=== PATIENT | female | born 1975 | race Caucasian/White ===

== ENCOUNTER 2020-07-06 07:40 | Inpatient (IN) | payer SELFPAY ==
[~2020-07-06] VITALS: Ht 165.1 cm; Wt 64.5 kg
[2020-07-06] MEDS ORDERED: IV NORMAL SALINE 1000ML BAG 1,000 ML IV ONE (08:30)
[2020-07-06] MEDS ORDERED: ONDANSETRON PF 4 MG/2 ML VIAL. IVP ONE (08:30)
[2020-07-06] MEDS ORDERED: KETOROLAC 15 MG/ML VIAL. IVP ONE (08:30)
[2020-07-06] MEDS ORDERED: FAMOTIDINE 20 MG/2 ML VIAL IVP ONE (08:30)
[2020-07-06 08:41] LABS: BILIRUBIN,URINE NEGATIVE (NEG); CLARITY,URINE CLOUDY; COLOR,URINE YELLOW; NITRITE,URINE NEGATIVE (NEG); PH,URINE 8.5 (<5.0-8.0); PROTEIN,URINE NEGATIVE (NEG-TRACE); UROBILINOGEN,URINE 0.2 mg/dL (0.2 mg/dL)
[2020-07-06 08:45] LABS: BASO % 0 % (0-3); EOS # 0.1 x10^3/uL (0.0-0.7); EOS % 1 % (0-3); HEMATOCRIT 40.8 % (36.0-47.0); LYMPH # 1.7 x10^3/uL (1.0-4.8); LYMPH % 19 % (24-48); MEAN CORPUSCULAR HEMOGLOBIN 29 pg (25-35); MEAN CORPUSCULAR HGB CONC 34 g/dL (31-37); MEAN CORPUSCULAR VOLUME 84 fL (79-100); MONO # 0.6 x10^3/uL (0.0-1.1); MONO % 7 % (0-9); NEUT # 6.5 x10^3/uL (1.8-7.7); NEUT % 72 % (31-73); PLATELET COUNT 275 x10^3/uL (140-400); RED BLOOD COUNT 4.87 x10^6/uL (3.50-5.40); RED CELL DISTRIBUTION WIDTH 13.3 % (11.5-14.5)
[2020-07-06 08:47] LABS: BARBITURATES NEG (NEG); BENZODIAZEPINES NEG (NEG); CANNABINOIDS NEG (NEG); COCAINE NEG (NEG); METHADONE NEG (NEG); OPIATES NEG (NEG); PHENCYCLIDINE NEG (NEG)
[2020-07-06 08:48] LABS: BACTERIA,URINE FEW /HPF (0-FEW); RBC,URINE 0 /HPF (0-2); WBC,URINE OCC /HPF (0-4)
[2020-07-06 08:50] LABS: PROTHROMBIN TIME PATIENT 13.1 SEC (11.7-14.0)
[2020-07-06 08:51] LABS: AMPHETAMINE/METHAMPHETAMINE POS (NEG)
[2020-07-06 08:59] LABS: CALCIUM 9.3 mg/dL (8.5-10.1); CREATININE 0.9 mg/dL (0.6-1.0); GFR 68.3
[2020-07-06] MEDS ORDERED: IOHEXOL 300 MG/ML 100ML VIAL. IV ONE (09:00)
[2020-07-06 09:05] LABS: ALBUMIN 3.8 g/dL (3.4-5.0); ALBUMIN/GLOBULIN RATIO 1.1 (1.0-1.7); TOTAL PROTEIN 7.2 g/dL (6.4-8.2)
--- NOTE | 2020-07-06 09:10 | PHYS DOC ---
Past Medical History Past Medical History: Other Additional Past Medical Histor: BIPOLAR Past Surgical History: No Surgical History Smoking Status: Current Every Day Smoker Additional Information: VAPE Alcohol Use: Heavy Social History Narrative: "SHROOMS" "SPEED" General Adult EDM: Chief Complaint: ABDOMINAL PAIN HPI: HPI: Patient is a 45 year old female presents with several day history of epigastric abdominal pain with associated nausea and diarrhea. Patient reports last week she had had a fever and ended up staying home from work. Patient denies known exposure to COVID-19 however she does work at [employer] in the [employer]. Reports several employees have tested positive recently. Denies trauma. Denies . History of prior ETOH abuse and use of "speed" and mushrooms. Review of Systems: Review of Systems: Constitutional: Reports fever/chills and fatigue Eyes: Denies redness or eye pain HENT: Denies nasal congestion or sore throat Respiratory: Denies cough or shortness of breath Cardiovascular: Denies chest pain or palpitations GI: Reports abdominal pain, nausea, vomiting, and diarrhea : Denies dysuria or hematuria Musculoskeletal: Denies back pain or joint pain Integument: Denies rash or skin lesions Neurologic: Denies headache, focal weakness or sensory changes Complete systems were reviewed and found to be within normal limits, except as documented in this note. Heart Score: HEART Score for Chest Pain: HEART Score for Chest Pain Response (Comments) Value History Slighlty/Non-Suspicious 0 ECG Normal 0 Age < 45 0 Risk Factors 1 or 2 Risk Factors 1 Troponin < Normal Limit 0 Total 1 Risk Factors: Risk Factors: DM, Current or recent (<one month) smoker, HTN, HLP, family history of CAD, obesity. Risk Scores: Score 0 - 3: 2.5% MACE over next 6 weeks - Discharge Home Score 4 - 6: 20.3% MACE over next 6 weeks - Admit for Clinical Observation Score 7 - 10: 72.7% MACE over next 6 weeks - Early Invasive Strategies Current Medications: Current Medications Medications (Trade) Dose Ordered Sig/Kevin Start Time Stop Time Status Last Admin Dose Admin Famotidine (Pepcid Vial) 20 mg 1X ONCE 07/06/20 08:30 07/06/20 08:37 DC 07/06/20 08:38 20 MG Ketorolac Tromethamine (Toradol 15mg Vial) 15 mg 1X ONCE 07/06/20 08:30 07/06/20 08:37 DC 07/06/20 08:38 15 MG Ondansetron HCl (Zofran) 4 mg 1X ONCE 07/06/20 08:30 07/06/20 08:37 DC 07/06/20 08:38 4 MG Sodium Chloride 1,000 ml @ 1,000 mls/hr 1X ONCE 07/06/20 08:30 07/06/20 09:29 07/06/20 08:38 1,000 MLS/HR Allergies: Allergies: Allergies Coded Allergies Type Severity Reaction Last Updated Verified No Known Drug Allergies 07/06/20 No Physical Exam: PE: Constitutional: Well developed, well nourished, no acute distress, non-toxic appearance HENT: Normocephalic, atraumatic Eyes: Conjunctiva normal, no discharge Neck: Normal range of motion, no tenderness, supple Lungs & Thorax: No respiratory distress, equal chest rise and fall Abdomen: Soft, epigastric tenderness, mild guarding and distention noted, no re bound tenderness Skin: Warm, dry, no erythema, no rash Back: No tenderness, no CVA tenderness Extremities: No tenderness, ROM intact, no edema Neurologic: Alert and oriented X 3, no focal deficits noted Psychologic: Affect normal, judgment normal Current Patient Data: Labs: Laboratory Tests Test 07/06/20 07:57 07/06/20 08:25 POC Urine HCG, Qualitative Hcg negative (Negative) White Blood Count 9.0 x10^3/uL (4.0-11.0) Red Blood Count 4.87 x10^6/uL (3.50-5.40) Hemoglobin 14.0 g/dL (12.0-15.5) Hematocrit 40.8 % (36.0-47.0) Mean Corpuscular Volume 84 fL (79-100) Mean Corpuscular Hemoglobin 29 pg (25-35) Mean Corpuscular Hemoglobin Concent 34 g/dL (31-37) Red Cell Distribution Width 13.3 % (11.5-14.5) Platelet Count 275 x10^3/uL (140-400) Neutrophils (%) (Auto) 72 % (31-73) Lymphocytes (%) (Auto) 19 % (24-48) L Monocytes (%) (Auto) 7 % (0-9) Eosinophils (%) (Auto) 1 % (0-3) Basophils (%) (Auto) 0 % (0-3) Neutrophils # (Auto) 6.5 x10^3/uL (1.8-7.7) Lymphocytes # (Auto) 1.7 x10^3/uL (1.0-4.8) Monocytes # (Auto) 0.6 x10^3/uL (0.0-1.1) Eosinophils # (Auto) 0.1 x10^3/uL (0.0-0.7) Basophils # (Auto) 0.0 x10^3/uL (0.0-0.2) Prothrombin Time 13.1 SEC (11.7-14.0) Prothrombin Time INR 1.0 (0.8-1.1) Activated Partial Thromboplast Time 32 SEC (24-38) Urine Collection Type Void Urine Color Yellow Urine Clarity Cloudy Urine pH 8.5 (<5.0-8.0) Urine Specific [place] 1.025 (1.000-1.030) Urine Protein Negative mg/dL (NEG-TRACE) Urine Glucose (UA) Negative mg/dL (NEG) Urine Ketones (Stick) Negative mg/dL (NEG) Urine Blood Negative (NEG) Urine Nitrite Negative (NEG) Urine Bilirubin Negative (NEG) Urine Urobilinogen Dipstick 0.2 mg/dL (0.2 mg/dL) Urine Leukocyte Esterase Negative (NEG) Urine RBC 0 /HPF (0-2) Urine WBC Occ /HPF (0-4) Urine Squamous Epithelial Cells Many /LPF Urine Bacteria Few /HPF (0-FEW) Urine Opiates Screen Neg (NEG) Urine Methadone Screen Neg (NEG) Urine Barbiturates Neg (NEG) Urine Phencyclidine Screen Neg (NEG) Urine Amphetamine/Methamphetamine Pos (NEG) Urine Benzodiazepines Screen Neg (NEG) Urine Cocaine Screen Neg (NEG) Urine Cannabinoids Screen Neg (NEG) Urine Ethyl Alcohol Neg (NEG) Laboratory Tests 07/06/20 08:25 Vital Signs: Vital Signs Date Time Temp Pulse Resp B/P (MAP) Pulse Ox O2 Delivery O2 Flow Rate FiO2 07/06/20 08:09 97.7 85 150/80 (103) 100 Room Air 97.7 EKG: EKG: @0846 NSR at 66bpm, NO ST elevation, artifactual negative deflection noted in II-III, QRS 96ms, QT/QTc 414/436ms Radiology/Procedures: Radiology/Procedures: PROCEDURE: CT ABD PELV W/ IV CONTRST ONLY Examination: CT of the abdomen pelvis with IV contrast History: abdominal pain, nausea, diarrhea COMPARISON: None available Technique: Axial CT images of the abdomen pelvis were performed with IV contrast. Coronal and sagittal reformats are performed. Exposure: One or more of the following individualized dose reduction techniques were utilized for this examination: 1. Automated exposure control 2. Adjustment of the mA and/or kV according to patient size 3. Use of iterative reconstruction technique FINDINGS: The bibasilar lungs are clear. No evidence of free air identified in the abdomen. The liver, spleen grossly appears unremarkable. The gallbladder is mildly distended. The stomach is mildly distended with fluid. There are multiple dilated and fluid distended small bowel loops identified in the upper and mid abdomen. Multiple nondistended bowel loops in the lower abdomen likely small bowel obstruction. The transition point is difficult to visualize but could be in the right lower quadrant. Feces and gas noted in the colon. Urinary bladder is mildly distended. Small amount of free fluid identified in the pelvis. There is peripherally enhancing cystic structure identified in the right ovary measuring 1.4 cm likely a follicle The bilateral kidneys enhance symmetrically. Moderate degenerative changes thoracolumbar spine most at L4-L5 vertebral level. IMPRESSION: 1. Dilated small bowel loops with findings consistent with small bowel obstruction with possible transition point in the right lower quadrant. Electronically signed by: Jayesh Romero MD (07/06/2020 9:43 AM) [id number] Course & Med Decision Making: Course & Med Decision Making Pertinent Labs and Imaging studies reviewed. (See chart for details) Patient presents with report of epigastric abdominal pain with associated nausea and diarrhea x1 day. History of prior episode last week. Patient reports possible exposure to COVID-19. Covid [address] Covid testing pending. EKG stable. Labs obtained and posted to chart. Hypokalemia noted. Replacement ordered. CT abdomen/pelvis with findings of acute small bowel obstruction. Patient requiring admission for further evaluation and treatment. Discussed with Dr. Fowler (hospitalist) who is in agreement with admission. Consult placed to Dr. Hooks (general surgery) Discussed findings and plan with patient, who acknowledges understanding and agreement. COVID-19 CRITERIA: The patient was evaluated during the global COVID-19 [facility], and that diagnosis was suspected/considered upon their initial presentation. Their evaluation, treatment and testing was consistent with current guidelines for patients who present with complaints or symptoms that may be related to COVID-19. Dragon Disclaimer: Dragon Disclaimer: This electronic medical record was generated, in whole or in part, using a voice recognition dictation system. Departure Departure Impression: Primary Impression: Small bowel obstruction Additional Impressions: Suspected 2019 novel coronavirus infection Hypokalemia Disposition: ADMITTED INPT THIS HOSP Admitting Physician: BIBIANA Leahy) Condition: STABLE Referrals: NO PCP (PCP) COVID-19 Assessment: COVID-19 Patient Risks: Age 65 or older: No Sign of co-morbidity: No Exp to person + for COVID: Yes Exp to PUI: No Travel from affected area: No Lower respiratory symptoms: No Fever: Yes Other: Yes PPE Use: Full PPE with N95 mask or PAPR: Yes PARKER JETER DO Jul 06, 2020 09:10
--- NOTE | 2020-07-06 09:46 | RAD ---
Examination: CT of the abdomen pelvis with IV contrast History: abdominal pain, nausea, diarrhea COMPARISON: None available Technique: Axial CT images of the abdomen pelvis were performed with IV contrast. Coronal and sagittal reformats are performed. Exposure: One or more of the following individualized dose reduction techniques were utilized for this examination: 1. Automated exposure control 2. Adjustment of the mA and/or kV according to patient size 3. Use of iterative reconstruction technique FINDINGS: The bibasilar lungs are clear. No evidence of free air identified in the abdomen. The liver, spleen grossly appears unremarkable. The gallbladder is mildly distended. The stomach is mildly distended with fluid. There are multiple dilated and fluid distended small bowel loops identified in the upper and mid abdomen. Multiple nondistended bowel loops in the lower abdomen likely small bowel obstruction. The transition point is difficult to visualize but could be in the right lower quadrant. Feces and gas noted in the colon. Urinary bladder is mildly distended. Small amount of free fluid identified in the pelvis. There is peripherally enhancing cystic structure identified in the right ovary measuring 1.4 cm likely a follicle The bilateral kidneys enhance symmetrically. Moderate degenerative changes thoracolumbar spine most at L4-L5 vertebral level. IMPRESSION: 1. Dilated small bowel loops with findings consistent with small bowel obstruction with possible transition point in the right lower quadrant. Electronically signed by: Jayesh Romero MD (07/06/2020 9:43 AM) [id number]
[2020-07-06] MEDS ORDERED: ONDANSETRON PF 4 MG/2 ML VIAL. IV PRN ×2 (10:45→16:00)
[2020-07-06] MEDS ORDERED: CONTRAST GIVEN. MC PRN (10:45)
--- NOTE | 2020-07-06 10:53 | PDOC1 ---
History and Physical Date of Admission Date of Admission DATE: 07/06/20 TIME: 10:52 Identification/Chief Complaint Chief Complaint SEEN IN ER WITH sbo 45 year old female presents with several day history of epigastric abdominal pain with associated nausea and diarrhea. Patient reports last week she had had a fever Patient denies known exposure to COVID-19 however she does work at [employer] in the [employer]. Reports several employees have tested positive recently. Denies trauma. Denies . History of prior ETOH abuse and use of "speed" and mushrooms. Past Medical History Past Medical History Past Medical History Past Medical History Past Medical History: Other Additional Past Medical Histor: BIPOLAR Past Surgical History: No Surgical History Smoking Status: Current Every Day Smoker Additional Information: VAPE Alcohol Use: Heavy Social History Narrative: "SHROOMS" "SPEED" fhx copd Pulmonary: No pertinent hx Family History Family History: Hypertension Social History Smoke: <1 pack per day ALCOHOL: occassional Drugs: Other (mushrooms) Current Problem List Problem List Problems Medical Problems: (1) Epigastric abdominal pain Status: Acute (2) Hypokalemia Status: Acute (3) Small bowel obstruction Status: Acute (4) Suspected 2019 novel coronavirus infection Status: Acute Current Medications Current Medications Current Medications Ondansetron HCl (Zofran) 4 mg 1X ONCE IVP Last administered on 07/06/20at 08:38; Start 07/06/20 at 08:30; Stop 07/06/20 at 08:37; Status DC Famotidine (Pepcid Vial) 20 mg 1X ONCE IVP Last administered on 07/06/20at 08:38; Start 07/06/20 at 08:30; Stop 07/06/20 at 08:37; Status DC Ketorolac Tromethamine (Toradol 15mg Vial) 15 mg 1X ONCE IVP Last administered on 07/06/20at 08:38; Start 07/06/20 at 08:30; Stop 07/06/20 at 08:37; Status DC Sodium Chloride 1,000 ml @ 1,000 mls/hr 1X ONCE IV Last administered on 07/06/20at 08:38; Start 07/06/20 at 08:30; Stop 07/06/20 at 09:29; Status DC Iohexol (Omnipaque 300 Mg/ml) 75 ml 1X ONCE IV Last administered on 07/06/20at 09:08; Start 07/06/20 at 09:00; Stop 07/06/20 at 09:02; Status DC Ondansetron HCl (Zofran) 4 mg PRN Q8HRS PRN IV NAUSEA/VOMITING; Start 07/06/20 at 10:45; Stop 07/07/20 at 10:44 Sodium Chloride 1,000 ml @ 100 mls/hr Q10H IV ; Start 07/06/20 at 10:34; Stop 07/07/20 at 10:33 Info (CONTRAST GIVEN -- Rx MONITORING) 1 each PRN DAILY PRN MC SEE COMMENTS; Start 07/06/20 at 10:45; Stop 07/08/20 at 10:44 Potassium Chloride/Water 100 ml @ 100 mls/hr Q1H IV ; Start 07/06/20 at 11:00; Stop 07/06/20 at 14:59 Allergies Allergies: Coded Allergies: No Known Drug Allergies (Unverified , 07/06/20) ROS Review of System Constitutional: Reports fever/chills and fatigue Eyes: Denies redness or eye pain HENT: Denies nasal congestion or sore throat Respiratory: Denies cough or shortness of breath Cardiovascular: Denies chest pain or palpitations GI: Reports abdominal pain, nausea, vomiting, and diarrhea : Denies dysuria or hematuria Musculoskeletal: Denies back pain or joint pain Integument: Denies rash or skin lesions Neurologic: Denies headache, focal weakness or sensory changes Complete systems were reviewed and found to be within normal limits, except as documented in this note. 14 pt ros otherwise neg General: YES: Fatigue Eyes: No Blurry vision, No Decreased vision, No Double vision, No Dry eyes, No Excessive tearing, No Eye Pain, No Itchy Eyes, No Loss of vision, No Photophobia, No Scotomata, No Uses contacts, No Uses glasses, No Other ALLERGY AND IMMUNOLOGY: No: Hives, Insect Bite Sensitivity, Itchy/Watery Eyes, Nasal Congestion, Post Nasal Drip, Seasonal Allergies, Other Hematological and Lymphatic: No: Bleeding Problems, Blood Clots, Blood Tra nsfusions, Brusing, Night Sweats, Pallor, Swollen Lymph Nodes, Other Respiratory: No: Cough, Hemoptysis, Orthopnea, Pleuritic Pain, Shortness of breath, SOB with excertion, Sputum Changes, Stridor, Tachypnea, Wheezing, Other Gastrointestinal: Yes Nausea, Yes Abdominal Pain Genitourinary: No Dysuria, No Frequency, No Incontinence, No Hematuria, No Retention, No Discharge, No Urgency, No Pain, No Flank Pain, No Other, No , No , No , No , No , No , No Neurological: No Behavorial Changes, No Bowel/Bladder ControlChng, No Confusi on, No Dizziness, No Gait Disturbance, No Headaches, No Impaired Coord/balance, No Memory Loss, No Numbness/Tingling, No Seizures, No Speech Problems, No Tremors, No Visual Changes, No Weakness, No Other Physical Exam Physical Exam Constitutional: Well developed, well nourished, no acute distress, non-toxic appearance HENT: Normocephalic, atraumatic Eyes: Conjunctiva normal, no discharge Neck: Normal range of motion, no tenderness, supple Lungs & Thorax: No respiratory distress, equal chest rise and fall Abdomen: Soft, epigastric tenderness, mild guarding and distention noted, no rebound tenderness Skin: Warm, dry, no erythema, no rash Back: No tenderness, no CVA tenderness Extremities: No tenderness, ROM intact, no edema Neurologic: Alert and oriented X 3, no focal deficits noted Psychologic: Affect normal, judgment normal General: Alert, Oriented X3, Cooperative, No acute distress HEENT: EOMI, Mucous membr. moist/pink Lungs: Normal air movement Breasts: Not examined Abdomen: Soft, No hepatosplenomegaly Rectal Exam: not examined Extremities: No cyanosis Neuro: Normal speech, Cranial nerves 3-12 NL Psych/Mental Status: Mental status NL, Mood NL Vitals Vitals Vital Signs Date Time Temp Pulse Resp B/P (MAP) Pulse Ox O2 Delivery O2 Flow Rate FiO2 07/06/20 08:09 97.7 85 150/80 (103) 100 Room Air 97.7 Labs Labs Laboratory Tests Test 07/06/20 07:57 07/06/20 08:25 Bedside Urine HCG, Qualitative Hcg negative (Negative) White Blood Count 9.0 x10^3/uL (4.0-11.0) Red Blood Count 4.87 x10^6/uL (3.50-5.40) Hemoglobin 14.0 g/dL (12.0-15.5) Hematocrit 40.8 % (36.0-47.0) Mean Corpuscular Volume 84 fL (79-100) Mean Corpuscular Hemoglobin 29 pg (25-35) Mean Corpuscular Hemoglobin Concent 34 g/dL (31-37) Red Cell Distribution Width 13.3 % (11.5-14.5) Platelet Count 275 x10^3/uL (140-400) Neutrophils (%) (Auto) 72 % (31-73) Lymphocytes (%) (Auto) 19 % (24-48) Monocytes (%) (Auto) 7 % (0-9) Eosinophils (%) (Auto) 1 % (0-3) Basophils (%) (Auto) 0 % (0-3) Neutrophils # (Auto) 6.5 x10^3/uL (1.8-7.7) Lymphocytes # (Auto) 1.7 x10^3/uL (1.0-4.8) Monocytes # (Auto) 0.6 x10^3/uL (0.0-1.1) Eosinophils # (Auto) 0.1 x10^3/uL (0.0-0.7) Basophils # (Auto) 0.0 x10^3/uL (0.0-0.2) Prothrombin Time 13.1 SEC (11.7-14.0) Prothromb Time International Ratio 1.0 (0.8-1.1) Activated Partial Thromboplast Time 32 SEC (24-38) Urine Collection Type Void Urine Color Yellow Urine Clarity Cloudy Urine pH 8.5 (<5.0-8.0) Urine Specific [place] 1.025 (1.000-1.030) Urine Protein Negative mg/dL (NEG-TRACE) Urine Glucose (UA) Negative mg/dL (NEG) Urine Ketones (Stick) Negative mg/dL (NEG) Urine Blood Negative (NEG) Urine Nitrite Negative (NEG) Urine Bilirubin Negative (NEG) Urine Urobilinogen Dipstick 0.2 mg/dL (0.2 mg/dL) Urine Leukocyte Esterase Negative (NEG) Urine RBC 0 /HPF (0-2) Urine WBC Occ /HPF (0-4) Urine Squamous Epithelial Cells Many /LPF Urine Bacteria Few /HPF (0-FEW) Sodium Level 141 mmol/L (136-145) Potassium Level 3.0 mmol/L (3.5-5.1) Chloride Level 104 mmol/L (98-107) Carbon Dioxide Level 23 mmol/L (21-32) Anion Gap 14 (6-14) Blood Urea Nitrogen 15 mg/dL (7-20) Creatinine 0.9 mg/dL (0.6-1.0) Estimated GFR (Cockcroft-Gault) 68.3 BUN/Creatinine Ratio 17 (6-20) Glucose Level 100 mg/dL (70-99) Calcium Level 9.3 mg/dL (8.5-10.1) Magnesium Level 2.1 mg/dL (1.8-2.4) Total Bilirubin 1.0 mg/dL (0.2-1.0) Aspartate Amino Transf (AST/SGOT) 18 U/L (15-37) Alanine Aminotransferase (ALT/SGPT) 14 U/L (14-59) Alkaline Phosphatase 68 U/L (46-116) Creatine Kinase 109 U/L (26-192) Creatine Kinase MB (Mass) 2.3 ng/mL (0.0-3.6) Creatine Kinase MB Relative Index 2.1 % (0-4) Troponin I Quantitative < 0.017 ng/mL (0.000-0.055) Total Protein 7.2 g/dL (6.4-8.2) Albumin 3.8 g/dL (3.4-5.0) Albumin/Globulin Ratio 1.1 (1.0-1.7) Lipase 402 U/L (73-393) Urine Opiates Screen Neg (NEG) Urine Methadone Screen Neg (NEG) Urine Barbiturates Neg (NEG) Urine Phencyclidine Screen Neg (NEG) Urine Amphetamine/Methamphetamine Pos (NEG) Urine Benzodiazepines Screen Neg (NEG) Urine Cocaine Screen Neg (NEG) Urine Cannabinoids Screen Neg (NEG) Ethyl Alcohol Level < 10 mg/dL (0-10) Urine Ethyl Alcohol Neg (NEG) Laboratory Tests Test 07/06/20 07:57 07/06/20 08:25 Bedside Urine HCG, Qualitative Hcg negative (Negative) White Blood Count 9.0 x10^3/uL (4.0-11.0) Red Blood Count 4.87 x10^6/uL (3.50-5.40) Hemoglobin 14.0 g/dL (12.0-15.5) Hematocrit 40.8 % (36.0-47.0) Mean Corpuscular Volume 84 fL (79-100) Mean Corpuscular Hemoglobin 29 pg (25-35) Mean Corpuscular Hemoglobin Concent 34 g/dL (31-37) Red Cell Distribution Width 13.3 % (11.5-14.5) Platelet Count 275 x10^3/uL (140-400) Neutrophils (%) (Auto) 72 % (31-73) Lymphocytes (%) (Auto) 19 % (24-48) Monocytes (%) (Auto) 7 % (0-9) Eosinophils (%) (Auto) 1 % (0-3) Basophils (%) (Auto) 0 % (0-3) Neutrophils # (Auto) 6.5 x10^3/uL (1.8-7.7) Lymphocytes # (Auto) 1.7 x10^3/uL (1.0-4.8) Monocytes # (Auto) 0.6 x10^3/uL (0.0-1.1) Eosinophils # (Auto) 0.1 x10^3/uL (0.0-0.7) Basophils # (Auto) 0.0 x10^3/uL (0.0-0.2) Prothrombin Time 13.1 SEC (11.7-14.0) Prothromb Time International Ratio 1.0 (0.8-1.1) Activated Partial Thromboplast Time 32 SEC (24-38) Urine Collection Type Void Urine Color Yellow Urine Clarity Cloudy Urine pH 8.5 (<5.0-8.0) Urine Specific [place] 1.025 (1.000-1.030) Urine Protein Negative mg/dL (NEG-TRACE) Urine Glucose (UA) Negative mg/dL (NEG) Urine Ketones (Stick) Negative mg/dL (NEG) Urine Blood Negative (NEG) Urine Nitrite Negative (NEG) Urine Bilirubin Negative (NEG) Urine Urobilinogen Dipstick 0.2 mg/dL (0.2 mg/dL) Urine Leukocyte Esterase Negative (NEG) Urine RBC 0 /HPF (0-2) Urine WBC Occ /HPF (0-4) Urine Squamous Epithelial Cells Many /LPF Urine Bacteria Few /HPF (0-FEW) Sodium Level 141 mmol/L (136-145) Potassium Level 3.0 mmol/L (3.5-5.1) Chloride Level 104 mmol/L (98-107) Carbon Dioxide Level 23 mmol/L (21-32) Anion Gap 14 (6-14) Blood Urea Nitrogen 15 mg/dL (7-20) Creatinine 0.9 mg/dL (0.6-1.0) Estimated GFR (Cockcroft-Gault) 68.3 BUN/Creatinine Ratio 17 (6-20) Glucose Level 100 mg/dL (70-99) Calcium Level 9.3 mg/dL (8.5-10.1) Magnesium Level 2.1 mg/dL (1.8-2.4) Total Bilirubin 1.0 mg/dL (0.2-1.0) Aspartate Amino Transf (AST/SGOT) 18 U/L (15-37) Alanine Aminotransferase (ALT/SGPT) 14 U/L (14-59) Alkaline Phosphatase 68 U/L (46-116) Creatine Kinase 109 U/L (26-192) Creatine Kinase MB (Mass) 2.3 ng/mL (0.0-3.6) Creatine Kinase MB Relative Index 2.1 % (0-4) Troponin I Quantitative < 0.017 ng/mL (0.000-0.055) Total Protein 7.2 g/dL (6.4-8.2) Albumin 3.8 g/dL (3.4-5.0) Albumin/Globulin Ratio 1.1 (1.0-1.7) Lipase 402 U/L (73-393) Urine Opiates Screen Neg (NEG) Urine Methadone Screen Neg (NEG) Urine Barbiturates Neg (NEG) Urine Phencyclidine Screen Neg (NEG) Urine Amphetamine/Methamphetamine Pos (NEG) Urine Benzodiazepines Screen Neg (NEG) Urine Cocaine Screen Neg (NEG) Urine Cannabinoids Screen Neg (NEG) Ethyl Alcohol Level < 10 mg/dL (0-10) Urine Ethyl Alcohol Neg (NEG) Images Images PATIENT: NITO HINES ACCOUNT: [id number] : 1975 LOCATION: ER AGE: 45 SEX: F EXAM STATUS: REG ER ORD. PHYSICIAN: PARKER JETER DO REASON: upper abdominal pain, nausea, diarrhea PROCEDURE: CT ABD PELV W/ IV CONTRST ONLY Examination: CT of the abdomen pelvis with IV contrast History: abdominal pain, nausea, diarrhea COMPARISON: None available Technique: Axial CT images of the abdomen pelvis were performed with IV contrast. Coronal and sagittal reformats are performed. Exposure: One or more of the following individualized dose reduction techniques were utilized for this examination: 1. Automated exposure control 2. Adjustment of the mA and/or kV according to patient size 3. Use of iterative reconstruction technique FINDINGS: The bibasilar lungs are clear. No evidence of free air identified in the abdomen. The liver, spleen grossly appears unremarkable. The gallbladder is mildly distended. The stomach is mildly distended with fluid. There are multiple dilated and fluid distended small bowel loops identified in the upper and mid abdomen. Multiple nondistended bowel loops in the lower abdomen likely small bowel obstruction. The transition point is difficult to visualize but could be in the right lower quadrant. Feces and gas noted in the colon. Urinary bladder is mildly distended. Small amount of free fluid identified in the pelvis. There is peripherally enhancing cystic structure identified in the right ovary measuring 1.4 cm likely a follicle The bilateral kidneys enhance symmetrically. Moderate degenerative changes thoracolumbar spine most at L4-L5 vertebral level. IMPRESSION: 1. Dilated small bowel loops with findings consistent with small bowel obstruction with possible transition point in the right lower quadrant. Electronically signed by: Jayesh Romero MD (07/06/2020 9:43 AM) [id number] DICTATED and SIGNED BY: JAYESH ROMERO MD DATE: 07/06/20 0943 VTE Prophylaxis Ordered VTE Prophylaxis Devices: Yes VTE Pharmacological Prophylaxi: Yes Assessment/Plan Assessment/Plan IMPRESSION: 1. Dilated small bowel loops //consistent with small bowel obstruction with possible transition point in the right lower quadrant. 2. hx substance abuse, METH 3. fever 4. Suspected 2019 novel coronavirus infection 5. Hypokalemia ADMITTED replace k iv gen surgery consult NPO DVT PROPHYLAXIS IV K AM LABS D/W ER DR Justifications for Admission Other Justification JEAN LOPEZ MD Jul 06, 2020 10:53
[2020-07-06 12:35] VITALS: BP 97/61
[2020-07-06] MEDS: IV NORMAL SALINE 1000ML BAG 1,000 ML IV SCH ×2 (13:03→20:34)
[2020-07-06] MEDS: POTASSIUM CHLORIDE 10MEQ 100 ML IV SCH ×7 (13:03→21:48)
--- NOTE | 2020-07-06 13:51 | RAD ---
KUB INDICATION: Reason: NG tube verification 664 / Spl. Instructions: / History: . COMPARISON: None. TECHNIQUE: Supine view of the abdomen was obtained. FINDINGS: Enteric tube with tip overlying the stomach. Distended loop of small bowel in the midabdomen. Large colonic stool burden. No free air on this limited supine image. Limited view of the lower chest demonstrates no acute abnormality. No acute osseous abnormality. IMPRESSION: Enteric tube tip overlying the body of the stomach. Electronically signed by: Ganesh Herrera MD (07/06/2020 1:48 PM) [id number]
--- NOTE | 2020-07-06 14:46 | EKG ---
[facility] [address] [place] [address] Test Date: 2020-07-06 Test Time: 08:46:40 Pat Name: NITO HINES Department: Room: Gender: F Information Support Project Manager: : 1975 Requested By: PARKER JETER Order Number: [id number] Reading MD: Measurements Intervals [place] Rate: 66 P: 0 [place]: 106 QRS: 55 QRSD: 96 T: 31 QT: 414 QTc: 436 Interpretive Statements SINUS RHYTHM NORMAL ECG RI6.01 No previous ECG available for comparison
[2020-07-06] MEDS ORDERED: IV NORMAL SALINE 1000ML BAG 1,000 ML IV SCH (15:56)
[2020-07-06] MEDS ORDERED: DOCUSATE SODIUM 100 MG CAPSULE. PO PRN (16:00)
[2020-07-06] MEDS ORDERED: cloNIDine HCL 0.1 MG TABLET PO PRN (16:00)
[2020-07-06] MEDS ORDERED: ACETAMINOPHEN 650 MG SUPP.RECT. PR PRN (16:00)
[2020-07-06] MEDS ORDERED: 0.9 % SODIUM CHLORIDE 10 ML DISP.SYRIN. IV PRN (16:00)
[2020-07-06] MEDS ORDERED: ALBUTEROL SULFATE 2.5 MG/3 ML NEBU. NEB PRN (16:00)
[2020-07-06] MEDS ORDERED: LORazepam 0.5 MG TABLET PO PRN (16:00)
[2020-07-06] MEDS ORDERED: guaiFENesin ORAL 200 MG/10 ML LIQUID. PO PRN (16:00)
[2020-07-06] MEDS ORDERED: MULTIVIT INFUSN,ADULT 4,VIT K 10 ML, THIAMINE INJ 100 MG, FOLIC ACID INJ 1 MG in IV NOR... IV ONE (16:00)
[2020-07-06] MEDS ORDERED: MAG HYDROX/ALUMINUM HYD/SIMETH 30 ML ORAL.SUSP PO PRN (16:00)
[2020-07-06] MEDS ORDERED: ACETAMINOPHEN 325 MG TABLET. PO PRN (16:00)
[2020-07-06] MEDS: ENOXAPARIN 40 MG/0.4 ML SYRINGE. SQ SCH (17:52)
--- NOTE | 2020-07-06 19:11 | PDOC2 ---
CONSULT Date of Consult Date of Consult DATE: 07/06/20 TIME: 18:48 Reason for Consult Reason for Consult: SBO Referring Physician Referring Physician: Dr. Fowler Identification/Chief Complaint Chief Complaint abd pain Source Source: Chart review, Patient History of Present Illness Reason for Visit: 45 yo F with N/V abd pain and diarrhea for a few weeks. Symptoms worsened prompting admission. Pt seen in her room and appears fatigued. Past Medical History Pulmonary: No pertinent hx Past Surgical History Past Surgical History: No pertinent history Family History Family History: Hypertension Social History <1 pack per day ALCOHOL: occassional Drugs: Other (mushrooms) Current Problem List Problem List Problems Medical Problems: (1) Epigastric abdominal pain Status: Acute (2) Hypokalemia Status: Acute (3) Small bowel obstruction Status: Acute (4) Suspected 2019 novel coronavirus infection Status: Acute Current Medications Current Medications Current Medications Ondansetron HCl (Zofran) 4 mg 1X ONCE IVP Last administered on 07/06/20at 08:38; Start 07/06/20 at 08:30; Stop 07/06/20 at 08:37; Status DC Famotidine (Pepcid Vial) 20 mg 1X ONCE IVP Last administered on 07/06/20at 08:38; Start 07/06/20 at 08:30; Stop 07/06/20 at 08:37; Status DC Ketorolac Tromethamine (Toradol 15mg Vial) 15 mg 1X ONCE IVP Last administered on 07/06/20at 08:38; Start 07/06/20 at 08:30; Stop 07/06/20 at 08:37; Status DC Sodium Chloride 1,000 ml @ 1,000 mls/hr 1X ONCE IV Last administered on 07/06/20at 08:38; Start 07/06/20 at 08:30; Stop 07/06/20 at 09:29; Status DC Iohexol (Omnipaque 300 Mg/ml) 75 ml 1X ONCE IV Last administered on 07/06/20at 09:08; Start 07/06/20 at 09:00; Stop 07/06/20 at 09:02; Status DC Ondansetron HCl (Zofran) 4 mg PRN Q8HRS PRN IV NAUSEA/VOMITING; Start 07/06/20 at 10:45; Stop 07/06/20 at 16:57; Status DC Sodium Chloride 1,000 ml @ 100 mls/hr Q10H IV Last administered on 07/06/20at 13:03; Start 07/06/20 at 10:34; Stop 07/07/20 at 10:33 Info (CONTRAST GIVEN -- Rx MONITORING) 1 each PRN DAILY PRN MC SEE COMMENTS; Start 07/06/20 at 10:45; Stop 07/08/20 at 10:44 Potassium Chloride/Water 100 ml @ 100 mls/hr Q1H IV Last administered on 07/06/20at 17:58; Start 07/06/20 at 11:00; Stop 07/06/20 at 14:59; Status DC Potassium Chloride/Water 100 ml @ 100 mls/hr Q1H IV ; Start 07/06/20 at 17:00; Stop 07/06/20 at 20:59 Sodium Chloride (Normal Saline Flush) 3 ml QSHIFT PRN IV AFTER MEDS AND BLOOD DRAWS; Start 07/06/20 at 16:00 Sodium Chloride 1,000 ml @ 100 mls/hr Q10H IV ; Start 07/06/20 at 15:56 Multivitamins 10 ml/Thiamine HCl 100 mg/Folic Acid 1 mg/Sodium Chloride 1,011.2 ml @ 125 mls/ hr 1X ONCE IV ; Start 07/06/20 at 16:00; Stop 07/07/20 at 00:05 Ondansetron HCl (Zofran) 4 mg PRN Q4HRS PRN IV NAUSEA/VOMITING; Start 07/06/20 at 16:00 Acetaminophen (Tylenol) 650 mg PRN Q4HRS PRN PO TEMP OVER 100.4F OR MILD PAIN; Start 07/06/20 at 16:00 Acetaminophen (Tylenol Supp) 650 mg PRN Q4HRS PRN ME TEMP OVER 100.4F OR MILD PAIN; Start 07/06/20 at 16:00 Al Hydroxide/Mg Hydroxide (Mylanta Plus Xs) 30 ml PRN DAILY PRN PO HEARTBURN / GAS; Start 07/06/20 at 16:00 Clonidine HCl (Catapres) 0.1 mg PRN Q6HRS PRN PO SBP>160 OR DBP>90; Start 07/06/20 at 16:00 Docusate Sodium (Colace) 100 mg PRN BID PRN PO HARD STOOLS; Start 07/06/20 at 16:00 Albuterol Sulfate (Ventolin Neb Soln) 2.5 mg PRN Q4HRS PRN NEB SHORTNESS OF BREATH; Start 07/06/20 at 16:00 Guaifenesin (Robitussin) 200 mg PRN Q4HRS PRN PO COUGH; Start 07/06/20 at 16:00 Lorazepam (Ativan) 0.5 mg PRN Q4HRS PRN PO ANXIETY / AGITATION; Start 07/06/20 at 16:00 Enoxaparin Sodium (Lovenox 40mg Syringe) 40 mg Q24H SQ Last administered on 07/06/20at 17:52; Start 07/06/20 at 16:00 Info (FLU VACCINE SCREEN per RX) 1 each PRN 1X PRN MC SEE COMMENTS; Start 07/06/20 at 21:00 Allergies Allergies: Coded Allergies: No Known Drug Allergies (Unverified , 07/06/20) ROS Gastrointestinal: Yes Nausea, Yes Vomiting, Yes Abdominal Pain, Yes Diarrhea Physical Exam General: Alert, Oriented X3, mild distress HEENT: Atraumatic Lungs: Normal air movement Abdomen: Soft, No tenderness Extremities: No clubbing, No cyanosis Skin: No rashes, No breakdown Neuro: Normal speech, Sensation intact Psych/Mental Status: Mental status NL, Mood NL Vitals VITALS Vital Signs Date Time Temp Pulse Resp B/P (MAP) Pulse Ox O2 Delivery O2 Flow Rate FiO2 07/06/20 15:45 Room Air 07/06/20 12:35 97.7 84 20 97/61 (73) 99 97.7 Labs Labs Laboratory Tests Test 07/06/20 07:57 07/06/20 08:25 Bedside Urine HCG, Qualitative Hcg negative (Negative) White Blood Count 9.0 x10^3/uL (4.0-11.0) Red Blood Count 4.87 x10^6/uL (3.50-5.40) Hemoglobin 14.0 g/dL (12.0-15.5) Hematocrit 40.8 % (36.0-47.0) Mean Corpuscular Volume 84 fL (79-100) Mean Corpuscular Hemoglobin 29 pg (25-35) Mean Corpuscular Hemoglobin Concent 34 g/dL (31-37) Red Cell Distribution Width 13.3 % (11.5-14.5) Platelet Count 275 x10^3/uL (140-400) Neutrophils (%) (Auto) 72 % (31-73) Lymphocytes (%) (Auto) 19 % (24-48) Monocytes (%) (Auto) 7 % (0-9) Eosinophils (%) (Auto) 1 % (0-3) Basophils (%) (Auto) 0 % (0-3) Neutrophils # (Auto) 6.5 x10^3/uL (1.8-7.7) Lymphocytes # (Auto) 1.7 x10^3/uL (1.0-4.8) Monocytes # (Auto) 0.6 x10^3/uL (0.0-1.1) Eosinophils # (Auto) 0.1 x10^3/uL (0.0-0.7) Basophils # (Auto) 0.0 x10^3/uL (0.0-0.2) Prothrombin Time 13.1 SEC (11.7-14.0) Prothromb Time International Ratio 1.0 (0.8-1.1) Activated Partial Thromboplast Time 32 SEC (24-38) Urine Collection Type Void Urine Color Yellow Urine Clarity Cloudy Urine pH 8.5 (<5.0-8.0) Urine Specific [place] 1.025 (1.000-1.030) Urine Protein Negative mg/dL (NEG-TRACE) Urine Glucose (UA) Negative mg/dL (NEG) Urine Ketones (Stick) Negative mg/dL (NEG) Urine Blood Negative (NEG) Urine Nitrite Negative (NEG) Urine Bilirubin Negative (NEG) Urine Urobilinogen Dipstick 0.2 mg/dL (0.2 mg/dL) Urine Leukocyte Esterase Negative (NEG) Urine RBC 0 /HPF (0-2) Urine WBC Occ /HPF (0-4) Urine Squamous Epithelial Cells Many /LPF Urine Bacteria Few /HPF (0-FEW) Sodium Level 141 mmol/L (136-145) Potassium Level 3.0 mmol/L (3.5-5.1) Chloride Level 104 mmol/L (98-107) Carbon Dioxide Level 23 mmol/L (21-32) Anion Gap 14 (6-14) Blood Urea Nitrogen 15 mg/dL (7-20) Creatinine 0.9 mg/dL (0.6-1.0) Estimated GFR (Cockcroft-Gault) 68.3 BUN/Creatinine Ratio 17 (6-20) Glucose Level 100 mg/dL (70-99) Calcium Level 9.3 mg/dL (8.5-10.1) Magnesium Level 2.1 mg/dL (1.8-2.4) Total Bilirubin 1.0 mg/dL (0.2-1.0) Aspartate Amino Transf (AST/SGOT) 18 U/L (15-37) Alanine Aminotransferase (ALT/SGPT) 14 U/L (14-59) Alkaline Phosphatase 68 U/L (46-116) Creatine Kinase 109 U/L (26-192) Creatine Kinase MB (Mass) 2.3 ng/mL (0.0-3.6) Creatine Kinase MB Relative Index 2.1 % (0-4) Troponin I Quantitative < 0.017 ng/mL (0.000-0.055) Total Protein 7.2 g/dL (6.4-8.2) Albumin 3.8 g/dL (3.4-5.0) Albumin/Globulin Ratio 1.1 (1.0-1.7) Lipase 402 U/L (73-393) Urine Opiates Screen Neg (NEG) Urine Methadone Screen Neg (NEG) Urine Barbiturates Neg (NEG) Urine Phencyclidine Screen Neg (NEG) Urine Amphetamine/Methamphetamine Pos (NEG) Urine Benzodiazepines Screen Neg (NEG) Urine Cocaine Screen Neg (NEG) Urine Cannabinoids Screen Neg (NEG) Ethyl Alcohol Level < 10 mg/dL (0-10) Urine Ethyl Alcohol Neg (NEG) Laboratory Tests Test 07/06/20 07:57 07/06/20 08:25 Bedside Urine HCG, Qualitative Hcg negative (Negative) White Blood Count 9.0 x10^3/uL (4.0-11.0) Red Blood Count 4.87 x10^6/uL (3.50-5.40) Hemoglobin 14.0 g/dL (12.0-15.5) Hematocrit 40.8 % (36.0-47.0) Mean Corpuscular Volume 84 fL (79-100) Mean Corpuscular Hemoglobin 29 pg (25-35) Mean Corpuscular Hemoglobin Concent 34 g/dL (31-37) Red Cell Distribution Width 13.3 % (11.5-14.5) Platelet Count 275 x10^3/uL (140-400) Neutrophils (%) (Auto) 72 % (31-73) Lymphocytes (%) (Auto) 19 % (24-48) Monocytes (%) (Auto) 7 % (0-9) Eosinophils (%) (Auto) 1 % (0-3) Basophils (%) (Auto) 0 % (0-3) Neutrophils # (Auto) 6.5 x10^3/uL (1.8-7.7) Lymphocytes # (Auto) 1.7 x10^3/uL (1.0-4.8) Monocytes # (Auto) 0.6 x10^3/uL (0.0-1.1) Eosinophils # (Auto) 0.1 x10^3/uL (0.0-0.7) Basophils # (Auto) 0.0 x10^3/uL (0.0-0.2) Prothrombin Time 13.1 SEC (11.7-14.0) Prothromb Time International Ratio 1.0 (0.8-1.1) Activated Partial Thromboplast Time 32 SEC (24-38) Urine Collection Type Void Urine Color Yellow Urine Clarity Cloudy Urine pH 8.5 (<5.0-8.0) Urine Specific [place] 1.025 (1.000-1.030) Urine Protein Negative mg/dL (NEG-TRACE) Urine Glucose (UA) Negative mg/dL (NEG) Urine Ketones (Stick) Negative mg/dL (NEG) Urine Blood Negative (NEG) Urine Nitrite Negative (NEG) Urine Bilirubin Negative (NEG) Urine Urobilinogen Dipstick 0.2 mg/dL (0.2 mg/dL) Urine Leukocyte Esterase Negative (NEG) Urine RBC 0 /HPF (0-2) Urine WBC Occ /HPF (0-4) Urine Squamous Epithelial Cells Many /LPF Urine Bacteria Few /HPF (0-FEW) Sodium Level 141 mmol/L (136-145) Potassium Level 3.0 mmol/L (3.5-5.1) Chloride Level 104 mmol/L (98-107) Carbon Dioxide Level 23 mmol/L (21-32) Anion Gap 14 (6-14) Blood Urea Nitrogen 15 mg/dL (7-20) Creatinine 0.9 mg/dL (0.6-1.0) Estimated GFR (Cockcroft-Gault) 68.3 BUN/Creatinine Ratio 17 (6-20) Glucose Level 100 mg/dL (70-99) Calcium Level 9.3 mg/dL (8.5-10.1) Magnesium Level 2.1 mg/dL (1.8-2.4) Total Bilirubin 1.0 mg/dL (0.2-1.0) Aspartate Amino Transf (AST/SGOT) 18 U/L (15-37) Alanine Aminotransferase (ALT/SGPT) 14 U/L (14-59) Alkaline Phosphatase 68 U/L (46-116) Creatine Kinase 109 U/L (26-192) Creatine Kinase MB (Mass) 2.3 ng/mL (0.0-3.6) Creatine Kinase MB Relative Index 2.1 % (0-4) Troponin I Quantitative < 0.017 ng/mL (0.000-0.055) Total Protein 7.2 g/dL (6.4-8.2) Albumin 3.8 g/dL (3.4-5.0) Albumin/Globulin Ratio 1.1 (1.0-1.7) Lipase 402 U/L (73-393) Urine Opiates Screen Neg (NEG) Urine Methadone Screen Neg (NEG) Urine Barbiturates Neg (NEG) Urine Phencyclidine Screen Neg (NEG) Urine Amphetamine/Methamphetamine Pos (NEG) Urine Benzodiazepines Screen Neg (NEG) Urine Cocaine Screen Neg (NEG) Urine Cannabinoids Screen Neg (NEG) Ethyl Alcohol Level < 10 mg/dL (0-10) Urine Ethyl Alcohol Neg (NEG) Images Images CT c/w SBO Assessment/Plan Assessment/Plan SBO, suspect enteritis cont NGT and supportive care Hopefully will be selflimiting. Thanks for consult! FRANCHESKA MCNAIR MD Jul 06, 2020 19:11
[2020-07-06 19:50] VITALS: BP 119/70
[2020-07-06] MEDS ORDERED: INFLUENZA VAX SCREEN BY RX. MC PRN (21:00)
[2020-07-06 23:32] VITALS: BP 114/66
[2020-07-07] MEDS: POTASSIUM CHLORIDE 10MEQ 100 ML IV SCH (00:52)
[2020-07-07 02:07] VITALS: BP 103/71
[2020-07-07] MEDS: IV NORMAL SALINE 1000ML BAG 1,000 ML IV SCH (05:45)
[2020-07-07 07:05] VITALS: BP 106/57
--- NOTE | 2020-07-07 09:29 | PDOC ---
PROGRESS NOTES Date of Service: DATE: 07/07/20 TIME: 09:29 Chief Complaint Chief Complaint IMPRESSION: 1. Dilated small bowel loops with findings consistent with small bowel obstruction with possible transition point in the right lower quadrant. Electronically signed by: Jayesh Romero MD (07/06/2020 9:43 AM) [id number] DICTATED and SIGNED BY: JAYESH ROMERO MD DATE: 07/06/20 0943 VTE Prophylaxis Ordered VTE Prophylaxis Devices: Yes VTE Pharmacological Prophylaxi: Yes Assessment/Plan Assessment/Plan IMPRESSION: 1. Dilated small bowel loops //consistent with small bowel obstruction with possible transition point in the right lower quadrant. 2. hx substance abuse, METH 3. fever 4. Suspected 2019 novel coronavirus infection 5. Hypokalemia 6. likely acute enteritis ADMITTED replace k iv gen surgery consult NPO DVT PROPHYLAXIS IV K AM LABS ng D/W rn Justifications for Admission Justifications for Admission Other Justification History of Present Illness History of Present Illness Identification/Chief Complaint Chief Complaint SEEN IN ER WITH sbo 45 year old female presents with several day history of epigastric abdominal pain with associated nausea and diarrhea. Patient reports last week she had had a fever Patient denies known exposure to COVID-19 however she does work at [employer] in the [employer]. Reports several employees have tested positive recently. Denies trauma. Denies . History of prior ETOH abuse and use of "speed" and mushrooms. Past Medical History Past Medical History Past Medical History Past Medical History Past Medical History: Other Additional Past Medical Histor: BIPOLAR Past Surgical History: No Surgical History Smoking Status: Current Every Day Smoker Additional Information: VAPE Alcohol Use: Heavy Social History Narrative: "SHROOMS" "SPEED" fhx copd Pulmonary: No pertinent hx Family History Family History: Hypertension Social History Smoke: <1 pack per day ALCOHOL: occassional Drugs: Other (mushrooms) Current Problem List Problem List Problems Medical Problems: (1) Epigastric abdominal pain Status: Acute (2) Hypokalemia Status: Acute Vitals Vitals Vital Signs Date Time Temp Pulse Resp B/P (MAP) Pulse Ox O2 Delivery O2 Flow Rate FiO2 07/07/20 08:30 Room Air 07/07/20 02:07 99.0 73 16 103/71 (82) 99 99.0 Physical Exam General: Alert, Oriented X3, Cooperative, No acute distress Heart: Regular rate, Normal S1 Lungs: Clear Abdomen: Soft, No tenderness, No hepatosplenomegaly Extremities: No clubbing, No cyanosis Skin: No rashes, No breakdown Assessment and Plan Assessmemt and Plan Problems Medical Problems: (1) Epigastric abdominal pain Status: Acute (2) Hypokalemia Status: Acute (3) Small bowel obstruction Status: Acute (4) Suspected 2019 novel coronavirus infection Status: Acute Comment Review of Relevant I have reviewed the following items blaze (where applicable) has been applied. Labs Laboratory Tests Test 07/06/20 07:57 07/06/20 08:25 Bedside Urine HCG, Qualitative Hcg negative (Negative) White Blood Count 9.0 x10^3/uL (4.0-11.0) Red Blood Count 4.87 x10^6/uL (3.50-5.40) Hemoglobin 14.0 g/dL (12.0-15.5) Hematocrit 40.8 % (36.0-47.0) Mean Corpuscular Volume 84 fL (79-100) Mean Corpuscular Hemoglobin 29 pg (25-35) Mean Corpuscular Hemoglobin Concent 34 g/dL (31-37) Red Cell Distribution Width 13.3 % (11.5-14.5) Platelet Count 275 x10^3/uL (140-400) Neutrophils (%) (Auto) 72 % (31-73) Lymphocytes (%) (Auto) 19 % (24-48) Monocytes (%) (Auto) 7 % (0-9) Eosinophils (%) (Auto) 1 % (0-3) Basophils (%) (Auto) 0 % (0-3) Neutrophils # (Auto) 6.5 x10^3/uL (1.8-7.7) Lymphocytes # (Auto) 1.7 x10^3/uL (1.0-4.8) Monocytes # (Auto) 0.6 x10^3/uL (0.0-1.1) Eosinophils # (Auto) 0.1 x10^3/uL (0.0-0.7) Basophils # (Auto) 0.0 x10^3/uL (0.0-0.2) Prothrombin Time 13.1 SEC (11.7-14.0) Prothromb Time International Ratio 1.0 (0.8-1.1) Activated Partial Thromboplast Time 32 SEC (24-38) Urine Collection Type Void Urine Color Yellow Urine Clarity Cloudy Urine pH 8.5 (<5.0-8.0) Urine Specific [place] 1.025 (1.000-1.030) Urine Protein Negative mg/dL (NEG-TRACE) Urine Glucose (UA) Negative mg/dL (NEG) Urine Ketones (Stick) Negative mg/dL (NEG) Urine Blood Negative (NEG) Urine Nitrite Negative (NEG) Urine Bilirubin Negative (NEG) Urine Urobilinogen Dipstick 0.2 mg/dL (0.2 mg/dL) Urine Leukocyte Esterase Negative (NEG) Urine RBC 0 /HPF (0-2) Urine WBC Occ /HPF (0-4) Urine Squamous Epithelial Cells Many /LPF Urine Bacteria Few /HPF (0-FEW) Sodium Level 141 mmol/L (136-145) Potassium Level 3.0 mmol/L (3.5-5.1) Chloride Level 104 mmol/L (98-107) Carbon Dioxide Level 23 mmol/L (21-32) Anion Gap 14 (6-14) Blood Urea Nitrogen 15 mg/dL (7-20) Creatinine 0.9 mg/dL (0.6-1.0) Estimated GFR (Cockcroft-Gault) 68.3 BUN/Creatinine Ratio 17 (6-20) Glucose Level 100 mg/dL (70-99) Calcium Level 9.3 mg/dL (8.5-10.1) Magnesium Level 2.1 mg/dL (1.8-2.4) Total Bilirubin 1.0 mg/dL (0.2-1.0) Aspartate Amino Transf (AST/SGOT) 18 U/L (15-37) Alanine Aminotransferase (ALT/SGPT) 14 U/L (14-59) Alkaline Phosphatase 68 U/L (46-116) Creatine Kinase 109 U/L (26-192) Creatine Kinase MB (Mass) 2.3 ng/mL (0.0-3.6) Creatine Kinase MB Relative Index 2.1 % (0-4) Troponin I Quantitative < 0.017 ng/mL (0.000-0.055) Total Protein 7.2 g/dL (6.4-8.2) Albumin 3.8 g/dL (3.4-5.0) Albumin/Globulin Ratio 1.1 (1.0-1.7) Lipase 402 U/L (73-393) Urine Opiates Screen Neg (NEG) Urine Methadone Screen Neg (NEG) Urine Barbiturates Neg (NEG) Urine Phencyclidine Screen Neg (NEG) Urine Amphetamine/Methamphetamine Pos (NEG) Urine Benzodiazepines Screen Neg (NEG) Urine Cocaine Screen Neg (NEG) Urine Cannabinoids Screen Neg (NEG) Ethyl Alcohol Level < 10 mg/dL (0-10) Urine Ethyl Alcohol Neg (NEG) Medications Current Medications Ondansetron HCl (Zofran) 4 mg 1X ONCE IVP Last administered on 07/06/20at 08:38; Start 07/06/20 at 08:30; Stop 07/06/20 at 08:37; Status DC Famotidine (Pepcid Vial) 20 mg 1X ONCE IVP Last administered on 07/06/20at 08:38; Start 07/06/20 at 08:30; Stop 07/06/20 at 08:37; Status DC Ketorolac Tromethamine (Toradol 15mg Vial) 15 mg 1X ONCE IVP Last administered on 07/06/20at 08:38; Start 07/06/20 at 08:30; Stop 07/06/20 at 08:37; Status DC Sodium Chloride 1,000 ml @ 1,000 mls/hr 1X ONCE IV Last administered on 07/06/20at 08:38; Start 07/06/20 at 08:30; Stop 07/06/20 at 09:29; Status DC Iohexol (Omnipaque 300 Mg/ml) 75 ml 1X ONCE IV Last administered on 07/06/20at 09:08; Start 07/06/20 at 09:00; Stop 07/06/20 at 09:02; Status DC Ondansetron HCl (Zofran) 4 mg PRN Q8HRS PRN IV NAUSEA/VOMITING; Start 07/06/20 at 10:45; Stop 07/06/20 at 16:57; Status DC Sodium Chloride 1,000 ml @ 100 mls/hr Q10H IV Last administered on 07/07/20at 05:45; Start 07/06/20 at 10:34; Stop 07/07/20 at 10:33 Info (CONTRAST GIVEN -- Rx MONITORING) 1 each PRN DAILY PRN MC SEE COMMENTS; Start 07/06/20 at 10:45; Stop 07/08/20 at 10:44 Potassium Chloride/Water 100 ml @ 100 mls/hr Q1H IV Last administered on 07/07/20at 00:52; Start 07/06/20 at 11:00; Stop 07/06/20 at 14:59; Status DC Potassium Chloride/Water 100 ml @ 100 mls/hr Q1H IV ; Start 07/06/20 at 17:00; Stop 07/06/20 at 20:59; Status DC Sodium Chloride (Normal Saline Flush) 3 ml QSHIFT PRN IV AFTER MEDS AND BLOOD DRAWS; Start 07/06/20 at 16:00 Sodium Chloride 1,000 ml @ 100 mls/hr Q10H IV ; Start 07/06/20 at 15:56; Stop 07/06/20 at 19:00; Status DC Multivitamins 10 ml/Thiamine HCl 100 mg/Folic Acid 1 mg/Sodium Chloride 1,011.2 ml @ 125 mls/ hr 1X ONCE IV Last administered on 07/06/20at 21:48; Start 07/06/20 at 16:00; Stop 07/07/20 at 00:05; Status DC Ondansetron HCl (Zofran) 4 mg PRN Q4HRS PRN IV NAUSEA/VOMITING; Start 07/06/20 at 16:00 Acetaminophen (Tylenol) 650 mg PRN Q4HRS PRN PO TEMP OVER 100.4F OR MILD PAIN; Start 07/06/20 at 16:00 Acetaminophen (Tylenol Supp) 650 mg PRN Q4HRS PRN RI TEMP OVER 100.4F OR MILD PAIN; Start 07/06/20 at 16:00 Al Hydroxide/Mg Hydroxide (Mylanta Plus Xs) 30 ml PRN DAILY PRN PO HEARTBURN / GAS; Start 07/06/20 at 16:00 Clonidine HCl (Catapres) 0.1 mg PRN Q6HRS PRN PO SBP>160 OR DBP>90; Start 07/06/20 at 16:00 Docusate Sodium (Colace) 100 mg PRN BID PRN PO HARD STOOLS; Start 07/06/20 at 16:00 Albuterol Sulfate (Ventolin Neb Soln) 2.5 mg PRN Q4HRS PRN NEB SHORTNESS OF BREATH; Start 07/06/20 at 16:00 Guaifenesin (Robitussin) 200 mg PRN Q4HRS PRN PO COUGH; Start 07/06/20 at 16:00 Lorazepam (Ativan) 0.5 mg PRN Q4HRS PRN PO ANXIETY / AGITATION; Start 07/06/20 at 16:00 Enoxaparin Sodium (Lovenox 40mg Syringe) 40 mg Q24H SQ Last administered on 07/06/20at 17:52; Start 07/06/20 at 16:00 Info (FLU VACCINE SCREEN per RX) 1 each PRN 1X PRN MC SEE COMMENTS; Start at 21:00 Vitals/I & O Vital Sign - Last 24 Hours 07/06/20 07/06/20 07/06/20 07/06/20 11:59 12:35 15:45 19:50 Temp 97.7 99.1 97.7 99.1 Pulse 98 84 80 Resp 23 20 20 B/P (MAP) 120/60 (80) 97/61 (73) 119/70 (86) Pulse Ox 98 99 100 O2 Delivery Room Air Room Air Room Air Room Air 07/06/20 07/06/20 07/07/20 07/07/20 20:00 23:32 02:07 08:30 Temp 98.9 99.0 98.9 99.0 Pulse 73 Resp 18 16 B/P (MAP) 114/66 (82) 103/71 (82) Pulse Ox 99 99 O2 Delivery Room Air Room Air Room Air Room Air Intake and Output 07/06/20 07/06/20 07/07/20 15:00 23:00 07:00 Intake Total 1000 ml 0 ml 0 ml Output Total 300 ml 300 ml Balance 1000 ml -300 ml -300 ml Justicifation of Admission Dx: Justifications for Admission: Justification of Admission Dx: Yes Comments: acute small bowel obstruction JEAN LOPEZ MD Jul 07, 2020 09:29
--- NOTE | 2020-07-07 09:41 | NUR ---
Pt's NG tube removed at approx 0830. Pt unable to recall how it came out, no complications noted. Pt stated she would rather not have another NG tube placed, as "it never felt comfy." She also states "it never felt like it was all the way in." Pt requested food. Dr. Fowler notified.
[2020-07-07 09:47] LABS: CALCIUM 8.4 mg/dL (8.5-10.1); CREATININE 0.6 mg/dL (0.6-1.0); GFR 109.1; POTASSIUM 3.8 mmol/L (3.5-5.1)
[2020-07-07 09:56] LABS: BASO % 1 % (0-3); EOS # 0.1 x10^3/uL (0.0-0.7); EOS % 2 % (0-3); HEMATOCRIT 39.8 % (36.0-47.0); HEMOGLOBIN 13.4 g/dL (12.0-15.5); LYMPH % 41 % (24-48); MEAN CORPUSCULAR HEMOGLOBIN 29 pg (25-35); MEAN CORPUSCULAR HGB CONC 34 g/dL (31-37); MEAN CORPUSCULAR VOLUME 85 fL (79-100); MONO # 0.3 x10^3/uL (0.0-1.1); MONO % 6 % (0-9); NEUT # 2.5 x10^3/uL (1.8-7.7); NEUT % 50 % (31-73); PLATELET COUNT 217 x10^3/uL (140-400); RED BLOOD COUNT 4.67 x10^6/uL (3.50-5.40); RED CELL DISTRIBUTION WIDTH 13.4 % (11.5-14.5); WHITE BLOOD COUNT 4.9 x10^3/uL (4.0-11.0)
[2020-07-07 11:05] VITALS: BP 101/59
--- NOTE | 2020-07-07 12:37 | PDOC ---
SAMIRA CHA RET[employer] MANAGER 07/07/20 1237: SURGICAL PROGRESS NOTE DATE: 07/07/20 TIME: 12:36 Subjective NG fell out, feels ok no pain, no nausea hungry Vital Signs Vital Signs Date Time Temp Pulse Resp B/P (MAP) Pulse Ox O2 Delivery O2 Flow Rate FiO2 07/07/20 11:05 98.8 77 24 101/59 (73) 100 Room Air 98.8 I&O Intake and Output 07/07/20 07:00 Intake Total 1000 ml Output Total 600 ml Balance 400 ml Intake Oral 0 ml IV Total 1000 ml Output Urine Total 600 ml General: Alert, Oriented X3, Cooperative Abdomen: Soft, No tenderness Labs Laboratory Tests Test 07/06/20 07:57 07/06/20 08:25 07/07/20 08:37 Bedside Urine HCG, Qualitative Hcg negative (Negative) White Blood Count 9.0 x10^3/uL (4.0-11.0) 4.9 x10^3/uL (4.0-11.0) Red Blood Count 4.87 x10^6/uL (3.50-5.40) 4.67 x10^6/uL (3.50-5.40) Hemoglobin 14.0 g/dL (12.0-15.5) 13.4 g/dL (12.0-15.5) Hematocrit 40.8 % (36.0-47.0) 39.8 % (36.0-47.0) Mean Corpuscular Volume 84 fL (79-100) 85 fL (79-100) Mean Corpuscular Hemoglobin 29 pg (25-35) 29 pg (25-35) Mean Corpuscular Hemoglobin Concent 34 g/dL (31-37) 34 g/dL (31-37) Red Cell Distribution Width 13.3 % (11.5-14.5) 13.4 % (11.5-14.5) Platelet Count 275 x10^3/uL (140-400) 217 x10^3/uL (140-400) Neutrophils (%) (Auto) 72 % (31-73) 50 % (31-73) Lymphocytes (%) (Auto) 19 % (24-48) 41 % (24-48) Monocytes (%) (Auto) 7 % (0-9) 6 % (0-9) Eosinophils (%) (Auto) 1 % (0-3) 2 % (0-3) Basophils (%) (Auto) 0 % (0-3) 1 % (0-3) Neutrophils # (Auto) 6.5 x10^3/uL (1.8-7.7) 2.5 x10^3/uL (1.8-7.7) Lymphocytes # (Auto) 1.7 x10^3/uL (1.0-4.8) 2.0 x10^3/uL (1.0-4.8) Monocytes # (Auto) 0.6 x10^3/uL (0.0-1.1) 0.3 x10^3/uL (0.0-1.1) Eosinophils # (Auto) 0.1 x10^3/uL (0.0-0.7) 0.1 x10^3/uL (0.0-0.7) Basophils # (Auto) 0.0 x10^3/uL (0.0-0.2) 0.0 x10^3/uL (0.0-0.2) Prothrombin Time 13.1 SEC (11.7-14.0) Prothromb Time International Ratio 1.0 (0.8-1.1) Activated Partial Thromboplast Time 32 SEC (24-38) Urine Collection Type Void Urine Color Yellow Urine Clarity Cloudy Urine pH 8.5 (<5.0-8.0) Urine Specific [place] 1.025 (1.000-1.030) Urine Protein Negative mg/dL (NEG-TRACE) Urine Glucose (UA) Negative mg/dL (NEG) Urine Ketones (Stick) Negative mg/dL (NEG) Urine Blood Negative (NEG) Urine Nitrite Negative (NEG) Urine Bilirubin Negative (NEG) Urine Urobilinogen Dipstick 0.2 mg/dL (0.2 mg/dL) Urine Leukocyte Esterase Negative (NEG) Urine RBC 0 /HPF (0-2) Urine WBC Occ /HPF (0-4) Urine Squamous Epithelial Cells Many /LPF Urine Bacteria Few /HPF (0-FEW) Sodium Level 141 mmol/L (136-145) 141 mmol/L (136-145) Potassium Level 3.0 mmol/L (3.5-5.1) 3.8 mmol/L (3.5-5.1) Chloride Level 104 mmol/L (98-107) 109 mmol/L (98-107) Carbon Dioxide Level 23 mmol/L (21-32) 22 mmol/L (21-32) Anion Gap 14 (6-14) 10 (6-14) Blood Urea Nitrogen 15 mg/dL (7-20) 8 mg/dL (7-20) Creatinine 0.9 mg/dL (0.6-1.0) 0.6 mg/dL (0.6-1.0) Estimated GFR (Cockcroft-Gault) 68.3 109.1 BUN/Creatinine Ratio 17 (6-20) Glucose Level 100 mg/dL (70-99) 67 mg/dL (70-99) Calcium Level 9.3 mg/dL (8.5-10.1) 8.4 mg/dL (8.5-10.1) Magnesium Level 2.1 mg/dL (1.8-2.4) Total Bilirubin 1.0 mg/dL (0.2-1.0) Aspartate Amino Transf (AST/SGOT) 18 U/L (15-37) Alanine Aminotransferase (ALT/SGPT) 14 U/L (14-59) Alkaline Phosphatase 68 U/L (46-116) Creatine Kinase 109 U/L (26-192) Creatine Kinase MB (Mass) 2.3 ng/mL (0.0-3.6) Creatine Kinase MB Relative Index 2.1 % (0-4) Troponin I Quantitative < 0.017 ng/mL (0.000-0.055) Total Protein 7.2 g/dL (6.4-8.2) Albumin 3.8 g/dL (3.4-5.0) Albumin/Globulin Ratio 1.1 (1.0-1.7) Lipase 402 U/L (73-393) Urine Opiates Screen Neg (NEG) Urine Methadone Screen Neg (NEG) Urine Barbiturates Neg (NEG) Urine Phencyclidine Screen Neg (NEG) Urine Amphetamine/Methamphetamine Pos (NEG) Urine Benzodiazepines Screen Neg (NEG) Urine Cocaine Screen Neg (NEG) Urine Cannabinoids Screen Neg (NEG) Ethyl Alcohol Level < 10 mg/dL (0-10) Urine Ethyl Alcohol Neg (NEG) Laboratory Tests Test 07/07/20 08:37 White Blood Count 4.9 x10^3/uL (4.0-11.0) Red Blood Count 4.67 x10^6/uL (3.50-5.40) Hemoglobin 13.4 g/dL (12.0-15.5) Hematocrit 39.8 % (36.0-47.0) Mean Corpuscular Volume 85 fL (79-100) Mean Corpuscular Hemoglobin 29 pg (25-35) Mean Corpuscular Hemoglobin Concent 34 g/dL (31-37) Red Cell Distribution Width 13.4 % (11.5-14.5) Platelet Count 217 x10^3/uL (140-400) Neutrophils (%) (Auto) 50 % (31-73) Lymphocytes (%) (Auto) 41 % (24-48) Monocytes (%) (Auto) 6 % (0-9) Eosinophils (%) (Auto) 2 % (0-3) Basophils (%) (Auto) 1 % (0-3) Neutrophils # (Auto) 2.5 x10^3/uL (1.8-7.7) Lymphocytes # (Auto) 2.0 x10^3/uL (1.0-4.8) Monocytes # (Auto) 0.3 x10^3/uL (0.0-1.1) Eosinophils # (Auto) 0.1 x10^3/uL (0.0-0.7) Basophils # (Auto) 0.0 x10^3/uL (0.0-0.2) Sodium Level 141 mmol/L (136-145) Potassium Level 3.8 mmol/L (3.5-5.1) Chloride Level 109 mmol/L (98-107) Carbon Dioxide Level 22 mmol/L (21-32) Anion Gap 10 (6-14) Blood Urea Nitrogen 8 mg/dL (7-20) Creatinine 0.6 mg/dL (0.6-1.0) Estimated GFR (Cockcroft-Gault) 109.1 Glucose Level 67 mg/dL (70-99) Calcium Level 8.4 mg/dL (8.5-10.1) Problem List Problems Medical Problems: (1) Epigastric abdominal pain Status: Acute (2) Hypokalemia Status: Acute (3) Small bowel obstruction Status: Acute (4) Suspected 2019 novel coronavirus infection Status: Acute Assessment/Plan trial clears Justicifation of Admission Dx: Justifications for Admission: Justification of Admission Dx: Yes Comments: sbo vs ileus FRANCHESKA MCNAIR MD 07/07/20 1456: SURGICAL PROGRESS NOTE Assessment/Plan Pt seen and examined. Agree with Ms. Cha's note Pt feels better, zachariah clears abd matt, SAMIRA CISNEROS APRN Jul 07, 2020 12:37 FRANCHESKA MCNAIR MD Jul 07, 2020 14:56
[2020-07-07 15:05] VITALS: BP 112/60
[2020-07-07] MEDS: ENOXAPARIN 40 MG/0.4 ML SYRINGE. SQ SCH (16:02)
--- NOTE | 2020-07-07 17:04 | NUR ---
SW following for discharge planning. Spoke with RN and reviewed chart. Pt from home. Pt COVID pending. SW attempted to contact pt, no answer. Pt on room air, oral medications, clear liquid diet. SW following.
[2020-07-07 19:00] VITALS: BP 108/54
[2020-07-07 23:00] VITALS: BP 102/71
[2020-07-08 03:00] VITALS: BP 101/50
[2020-07-08 07:00] VITALS: BP 92/45
--- NOTE | 2020-07-08 09:18 | PDOC ---
PROGRESS NOTES Date of Service: DATE: 07/08/20 TIME: 09:18 Chief Complaint Chief Complaint IMPRESSION: 1. Dilated small bowel loops with findings consistent with small bowel obstruction with possible transition point in the right lower quadrant. Electronically signed by: Jayesh Romero MD (07/06/2020 9:43 AM) [id number] DICTATED and SIGNED BY: JAYESH ROMERO MD DATE: 07/06/20 0943 VTE Prophylaxis Ordered VTE Prophylaxis Devices: Yes VTE Pharmacological Prophylaxi: Yes DISCHARGE DX Assessment/Plan IMPRESSION: 1. Dilated small bowel loops //consistent with small bowel obstruction with possible transition point in the right lower quadrant. 2. hx substance abuse, METH 3. fever 4. Suspected 2019 novel coronavirus infection 5. Hypokalemia 6. likely acute enteritis ADMITTED replace k iv gen surgery consult NPO DVT PROPHYLAXIS IV K AM LABS ng OUT 07/08 MUCH IMPROVED, HOME TODAY D/C PLANNING 26 MIN D/W rn Justifications for Admission Justifications for Admission Other Justification History of Present Illness History of Present Illness Identification/Chief Complaint Chief Complaint SEEN IN ER WITH sbo 45 year old female presents with several day history of epigastric abdominal pain with associated nausea and diarrhea. 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 Denies trauma. Denies . History of prior ETOH abuse and use of "speed" and mushrooms. Past Medical History Past Medical History Past Medical History Past Medical History Past Medical History: Other Additional Past Medical Histor: BIPOLAR Past Surgical History: No Surgical History Smoking Status: Current Every Day Smoker Additional Information: VAPE Alcohol Use: Heavy Social History Narrative: "SHROOMS" "SPEED" fhx copd Pulmonary: No pertinent hx Family History Family History: Hypertension Social History Smoke: <1 pack per day ALCOHOL: occassional Drugs: Other (mushrooms) Current Problem List Problem List Problems Medical Problems: (1) Epigastric abdominal pain Status: Acute (2) Hypokalemia Status: Acute Vitals Vitals Vital Signs Date Time Temp Pulse Resp B/P (MAP) Pulse Ox O2 Delivery O2 Flow Rate FiO2 07/08/20 07:00 98.0 75 18 92/45 (61) 93 Room Air 98.0 Physical Exam General: Alert, Oriented X3, Cooperative, No acute distress Heart: Regular rate, Normal S1 Lungs: Clear Abdomen: Normal bowel sounds, Soft, No tenderness Extremities: No clubbing, No cyanosis Skin: No rashes, No breakdown Assessment and Plan Assessmemt and Plan Problems Medical Problems: (1) Epigastric abdominal pain Status: Acute (2) Hypokalemia Status: Acute (3) Small bowel obstruction Status: Acute (4) Suspected 2019 novel coronavirus infection Status: Acute Comment Review of Relevant I have reviewed the following items blaze (where applicable) has been applied. Labs Laboratory Tests Test 07/07/20 08:37 White Blood Count 4.9 x10^3/uL (4.0-11.0) Red Blood Count 4.67 x10^6/uL (3.50-5.40) Hemoglobin 13.4 g/dL (12.0-15.5) Hematocrit 39.8 % (36.0-47.0) Mean Corpuscular Volume 85 fL (79-100) Mean Corpuscular Hemoglobin 29 pg (25-35) Mean Corpuscular Hemoglobin Concent 34 g/dL (31-37) Red Cell Distribution Width 13.4 % (11.5-14.5) Platelet Count 217 x10^3/uL (140-400) Neutrophils (%) (Auto) 50 % (31-73) Lymphocytes (%) (Auto) 41 % (24-48) Monocytes (%) (Auto) 6 % (0-9) Eosinophils (%) (Auto) 2 % (0-3) Basophils (%) (Auto) 1 % (0-3) Neutrophils # (Auto) 2.5 x10^3/uL (1.8-7.7) Lymphocytes # (Auto) 2.0 x10^3/uL (1.0-4.8) Monocytes # (Auto) 0.3 x10^3/uL (0.0-1.1) Eosinophils # (Auto) 0.1 x10^3/uL (0.0-0.7) Basophils # (Auto) 0.0 x10^3/uL (0.0-0.2) Sodium Level 141 mmol/L (136-145) Potassium Level 3.8 mmol/L (3.5-5.1) Chloride Level 109 mmol/L (98-107) Carbon Dioxide Level 22 mmol/L (21-32) Anion Gap 10 (6-14) Blood Urea Nitrogen 8 mg/dL (7-20) Creatinine 0.6 mg/dL (0.6-1.0) Estimated GFR (Cockcroft-Gault) 109.1 Glucose Level 67 mg/dL (70-99) Calcium Level 8.4 mg/dL (8.5-10.1) Medications Current Medications Ondansetron HCl (Zofran) 4 mg 1X ONCE IVP Last administered on 07/06/20at 08:38; Start 07/06/20 at 08:30; Stop 07/06/20 at 08:37; Status DC Famotidine (Pepcid Vial) 20 mg 1X ONCE IVP Last administered on 07/06/20at 08:38; Start 07/06/20 at 08:30; Stop 07/06/20 at 08:37; Status DC Ketorolac Tromethamine (Toradol 15mg Vial) 15 mg 1X ONCE IVP Last administered on 07/06/20at 08:38; Start 07/06/20 at 08:30; Stop 07/06/20 at 08:37; Status DC Sodium Chloride 1,000 ml @ 1,000 mls/hr 1X ONCE IV Last administered on 07/06/20at 08:38; Start 07/06/20 at 08:30; Stop 07/06/20 at 09:29; Status DC Iohexol (Omnipaque 300 Mg/ml) 75 ml 1X ONCE IV Last administered on 07/06/20at 09:08; Start 07/06/20 at 09:00; Stop 07/06/20 at 09:02; Status DC Ondansetron HCl (Zofran) 4 mg PRN Q8HRS PRN IV NAUSEA/VOMITING; Start 07/06/20 at 10:45; Stop 07/06/20 at 16:57; Status DC Sodium Chloride 1,000 ml @ 100 mls/hr Q10H IV Last administered on 07/07/20at 05:45; Start 07/06/20 at 10:34; Stop 07/07/20 at 10:33; Status DC Info (CONTRAST GIVEN -- Rx MONITORING) 1 each PRN DAILY PRN MC SEE COMMENTS; Start 07/06/20 at 10:45; Stop 07/08/20 at 10:44 Potassium Chloride/Water 100 ml @ 100 mls/hr Q1H IV Last administered on 07/07/20at 00:52; Start 07/06/20 at 11:00; Stop 07/06/20 at 14:59; Status DC Potassium Chloride/Water 100 ml @ 100 mls/hr Q1H IV ; Start 07/06/20 at 17:00; Stop 07/06/20 at 20:59; Status DC Sodium Chloride (Normal Saline Flush) 3 ml QSHIFT PRN IV AFTER MEDS AND BLOOD DRAWS; Start 07/06/20 at 16:00 Sodium Chloride 1,000 ml @ 100 mls/hr Q10H IV ; Start 07/06/20 at 15:56; Stop 07/06/20 at 19:00; Status DC Multivitamins 10 ml/Thiamine HCl 100 mg/Folic Acid 1 mg/Sodium Chloride 1,011.2 ml @ 125 mls/ hr 1X ONCE IV Last administered on 07/06/20at 21:48; Start 07/06/20 at 16:00; Stop 07/07/20 at 00:05; Status DC Ondansetron HCl (Zofran) 4 mg PRN Q4HRS PRN IV NAUSEA/VOMITING; Start 07/06/20 at 16:00 Acetaminophen (Tylenol) 650 mg PRN Q4HRS PRN PO TEMP OVER 100.4F OR MILD PAIN; Start 07/06/20 at 16:00 Acetaminophen (Tylenol Supp) 650 mg PRN Q4HRS PRN CO TEMP OVER 100.4F OR MILD PAIN; Start 07/06/20 at 16:00 Al Hydroxide/Mg Hydroxide (Mylanta Plus Xs) 30 ml PRN DAILY PRN PO HEARTBURN / GAS; Start 07/06/20 at 16:00 Clonidine HCl (Catapres) 0.1 mg PRN Q6HRS PRN PO SBP>160 OR DBP>90; Start 07/06/20 at 16:00 Docusate Sodium (Colace) 100 mg PRN BID PRN PO HARD STOOLS; Start 07/06/20 at 16:00 Albuterol Sulfate (Ventolin Neb Soln) 2.5 mg PRN Q4HRS PRN NEB SHORTNESS OF BREATH; Start 07/06/20 at 16:00 Guaifenesin (Robitussin) 200 mg PRN Q4HRS PRN PO COUGH; Start 07/06/20 at 16:00 Lorazepam (Ativan) 0.5 mg PRN Q4HRS PRN PO ANXIETY / AGITATION; Start 07/06/20 at 16:00 Enoxaparin Sodium (Lovenox 40mg Syringe) 40 mg Q24H SQ Last administered on 07/07/20at 16:02; Start 07/06/20 at 16:00 Info (FLU VACCINE SCREEN per RX) 1 each PRN 1X PRN MC SEE COMMENTS; Start 07/06/20 at 21:00 Vitals/I & O Vital Sign - Last 24 Hours 07/07/20 07/07/20 07/07/20 07/07/20 11:05 15:05 19:00 20:00 Temp 98.8 98.3 98.0 98.8 98.3 98.0 Pulse 77 86 63 Resp 24 12 18 B/P (MAP) 101/59 (73) 112/60 (77) 108/54 (72) Pulse Ox 100 100 100 O2 Delivery Room Air Room Air Room Air Room Air 07/07/20 07/08/20 07/08/20 23:00 03:00 07:00 Temp 98.0 98.2 98.0 98.0 98.2 98.0 Pulse 82 78 75 Resp 18 18 18 B/P (MAP) 102/71 (81) 101/50 (67) 92/45 (61) Pulse Ox 99 99 93 O2 Delivery Room Air Room Air Room Air Intake and Output 07/07/20 07/07/20 07/08/20 15:00 23:00 07:00 Intake Total 1360 ml 360 ml Balance 1360 ml 360 ml Justicifation of Admission Dx: Justifications for Admission: Justification of Admission Dx: Yes JEAN LOPEZ MD Jul 08, 2020 09:18
[2020-07-08] MEDS ORDERED: FLU VACC QS 2020-21(6MOS+)/PF 0.5 ML SYRINGE. VAX IM ONE (10:00)
[2020-07-08 10:53] VITALS: BP 112/80
--- NOTE | 2020-07-08 11:41 | PDOC3 ---
Discharge Summary Date of Admission: Jul 06, 2020 Date of Discharge: Jul 08, 2020 Follow-Up: 3-5 days Admitting Diagnosis comment: DISCHARGE DX Assessment/Plan IMPRESSION: 1. Dilated small bowel loops //consistent with small bowel obstruction with possible transition point in the right lower quadrant. 2. hx substance abuse, METH 3. fever 4. Suspected 2019 novel coronavirus infection 5. Hypokalemia 6. likely acute enteritis ADMITTED replace k iv gen surgery consult NPO DVT PROPHYLAXIS IV K AM LABS ng OUT 07/08 MUCH IMPROVED, HOME TODAY D/C PLANNING 26 MIN D/W rn Justifications for Admission Justifications for Admission Other Justification History of Present Illness History of Present Illness Identification/Chief Complaint Chief Complaint SEEN IN ER WITH sbo 45 year old female presents with several day history of epigastric abdominal pain with associated nausea and diarrhea. Patient reports last week she had had a fever Patient denies known exposure to COVID-19 however she does work at [employer] in the [employer]. Reports several employees have tested positive recently. Denies trauma. Denies . History of prior ETOH abuse and use of "speed" and mushrooms. Past Medical History Past Medical History Past Medical History Past Medical History Past Medical History: Other Additional Past Medical Histor: BIPOLAR Past Surgical History: No Surgical History Smoking Status: Current Every Day Smoker Additional Information: VAPE Alcohol Use: Heavy Social History Narrative: "SHROOMS" "SPEED" fhx copd Pulmonary: No pertinent hx Family History Family History: Hypertension Social History Smoke: <1 pack per day ALCOHOL: occassional Drugs: Other (mushrooms) Current Problem List Problem List Problems Medical Problems: (1) Epigastric abdominal pain Status: Acute (2) Hypokalemia Status: Acute Vitals Vitals Vital Signs Date Time Temp Pulse Resp B/P (MAP) Pulse Ox O2 Delivery O2 Flow Rate FiO2 07/08/20 07:00 98.0 75 18 92/45 (61) 93 Room Air 98.0 Physical Exam General: Alert, Oriented X3, Cooperative, No acute distress Heart: Regular rate, Normal S1 Lungs: Clear Abdomen: Normal bowel sounds, Soft, No tenderness Extremities: No clubbing, No cyanosis Skin: No rashes, No breakdown FINAL DIAGNOSIS Problems Medical Problems: (1) Epigastric abdominal pain Status: Acute (2) Hypokalemia Status: Acute (3) Small bowel obstruction Status: Acute (4) Suspected 2019 novel coronavirus infection Status: Acute Brief Hospital Course Ms. Zeng is a 45 old [sex] who presented with [ACUTE ENTERITIS, SBO ] CONDITION AT DISCHARGE: Improved Discharge Medications Current Medications Ondansetron HCl (Zofran) 4 mg 1X ONCE IVP Last administered on 07/06/20at 08:38; Start 07/06/20 at 08:30; Stop 07/06/20 at 08:37; Status DC Famotidine (Pepcid Vial) 20 mg 1X ONCE IVP Last administered on 07/06/20at 08:38; Start 07/06/20 at 08:30; Stop 07/06/20 at 08:37; Status DC Ketorolac Tromethamine (Toradol 15mg Vial) 15 mg 1X ONCE IVP Last administered on 07/06/20at 08:38; Start 07/06/20 at 08:30; Stop 07/06/20 at 08:37; Status DC Sodium Chloride 1,000 ml @ 1,000 mls/hr 1X ONCE IV Last administered on 07/06/20at 08:38; Start 07/06/20 at 08:30; Stop 07/06/20 at 09:29; Status DC Iohexol (Omnipaque 300 Mg/ml) 75 ml 1X ONCE IV Last administered on 07/06/20at 09:08; Start 07/06/20 at 09:00; Stop 07/06/20 at 09:02; Status DC Ondansetron HCl (Zofran) 4 mg PRN Q8HRS PRN IV NAUSEA/VOMITING; Start 07/06/20 at 10:45; Stop 07/06/20 at 16:57; Status DC Sodium Chloride 1,000 ml @ 100 mls/hr Q10H IV Last administered on 07/07/20at 05:45; Start 07/06/20 at 10:34; Stop 07/07/20 at 10:33; Status DC Info (CONTRAST GIVEN -- Rx MONITORING) 1 each PRN DAILY PRN MC SEE COMMENTS; Start 07/06/20 at 10:45; Stop 07/08/20 at 10:44; Status DC Potassium Chloride/Water 100 ml @ 100 mls/hr Q1H IV Last administered on 07/07/20at 00:52; Start 07/06/20 at 11:00; Stop 07/06/20 at 14:59; Status DC Potassium Chloride/Water 100 ml @ 100 mls/hr Q1H IV ; Start 07/06/20 at 17:00; Stop 07/06/20 at 20:59; Status DC Sodium Chloride (Normal Saline Flush) 3 ml QSHIFT PRN IV AFTER MEDS AND BLOOD DRAWS; Start 07/06/20 at 16:00 Sodium Chloride 1,000 ml @ 100 mls/hr Q10H IV ; Start 07/06/20 at 15:56; Stop 07/06/20 at 19:00; Status DC Multivitamins 10 ml/Thiamine HCl 100 mg/Folic Acid 1 mg/Sodium Chloride 1,011.2 ml @ 125 mls/ hr 1X ONCE IV Last administered on 07/06/20at 21:48; Start 07/06/20 at 16:00; Stop 07/07/20 at 00:05; Status DC Ondansetron HCl (Zofran) 4 mg PRN Q4HRS PRN IV NAUSEA/VOMITING; Start 07/06/20 at 16:00 Acetaminophen (Tylenol) 650 mg PRN Q4HRS PRN PO TEMP OVER 100.4F OR MILD PAIN; Start 07/06/20 at 16:00 Acetaminophen (Tylenol Supp) 650 mg PRN Q4HRS PRN AL TEMP OVER 100.4F OR MILD PAIN; Start 07/06/20 at 16:00 Al Hydroxide/Mg Hydroxide (Mylanta Plus Xs) 30 ml PRN DAILY PRN PO HEARTBURN / GAS; Start 07/06/20 at 16:00 Clonidine HCl (Catapres) 0.1 mg PRN Q6HRS PRN PO SBP>160 OR DBP>90; Start 07/06/20 at 16:00 Docusate Sodium (Colace) 100 mg PRN BID PRN PO HARD STOOLS; Start 07/06/20 at 16:00 Albuterol Sulfate (Ventolin Neb Soln) 2.5 mg PRN Q4HRS PRN NEB SHORTNESS OF BREATH; Start 07/06/20 at 16:00 Guaifenesin (Robitussin) 200 mg PRN Q4HRS PRN PO COUGH; Start 07/06/20 at 16:00 Lorazepam (Ativan) 0.5 mg PRN Q4HRS PRN PO ANXIETY / AGITATION; Start 07/06/20 at 16:00 Enoxaparin Sodium (Lovenox 40mg Syringe) 40 mg Q24H SQ Last administered on 07/07/20at 16:02; Start 07/06/20 at 16:00 Info (FLU VACCINE SCREEN per RX) 1 each PRN 1X PRN MC SEE COMMENTS; Start 07/06/20 at 21:00; Status Cancel Influenza Virus Vaccine Quadrival (Fluzone Quad 2703-6922 Syringe) 0.5 ml ONCE ONCE VAX IM ; Start 07/08/20 at 10:00; Stop 07/08/20 at 10:01; Status DC Vital Signs Vital Signs Date Time Temp Pulse Resp B/P (MAP) Pulse Ox O2 Delivery O2 Flow Rate FiO2 07/08/20 10:53 96.9 91 18 112/80 (91) 95 Room Air 96.9 Labs Laboratory Tests Test 07/07/20 08:37 White Blood Count 4.9 x10^3/uL (4.0-11.0) Red Blood Count 4.67 x10^6/uL (3.50-5.40) Hemoglobin 13.4 g/dL (12.0-15.5) Hematocrit 39.8 % (36.0-47.0) Mean Corpuscular Volume 85 fL (79-100) Mean Corpuscular Hemoglobin 29 pg (25-35) Mean Corpuscular Hemoglobin Concent 34 g/dL (31-37) Red Cell Distribution Width 13.4 % (11.5-14.5) Platelet Count 217 x10^3/uL (140-400) Neutrophils (%) (Auto) 50 % (31-73) Lymphocytes (%) (Auto) 41 % (24-48) Monocytes (%) (Auto) 6 % (0-9) Eosinophils (%) (Auto) 2 % (0-3) Basophils (%) (Auto) 1 % (0-3) Neutrophils # (Auto) 2.5 x10^3/uL (1.8-7.7) Lymphocytes # (Auto) 2.0 x10^3/uL (1.0-4.8) Monocytes # (Auto) 0.3 x10^3/uL (0.0-1.1) Eosinophils # (Auto) 0.1 x10^3/uL (0.0-0.7) Basophils # (Auto) 0.0 x10^3/uL (0.0-0.2) Sodium Level 141 mmol/L (136-145) Potassium Level 3.8 mmol/L (3.5-5.1) Chloride Level 109 mmol/L (98-107) Carbon Dioxide Level 22 mmol/L (21-32) Anion Gap 10 (6-14) Blood Urea Nitrogen 8 mg/dL (7-20) Creatinine 0.6 mg/dL (0.6-1.0) Estimated GFR (Cockcroft-Gault) 109.1 Glucose Level 67 mg/dL (70-99) Calcium Level 8.4 mg/dL (8.5-10.1) Allergies Allergies Coded Allergies Type Severity Reaction Last Updated Verified No Known Drug Allergies 07/06/20 No Disposition/Orders: D/C to Home Justicifation of Admission Dx: Justifications for Admission: Justification of Admission Dx: Yes JEAN LOPEZ MD Jul 08, 2020 11:41
[2020-07-08] MEDS ORDERED: DOCU-153 PO (11:43)
[2020-07-08] MEDS ORDERED: ACET325T9 PO (11:43)
--- NOTE | 2020-07-08 11:44 | DISCH ---
DISCHARGE INSTRUCTIONS Condition on Discharge Condition on Discharge: Stable Activity After Discharge Activity Instructions for Disc: Activity as tolerated Driving Instructions after Dis: Do not drive today Diet after Discharge Diet after Discharge: Full Liquid Liquid Texture: Thin Liquid Checks after Discharge Checks after discharge: Check blood press - daily Contacting the DRVenkat after DC Call your doctor for: If your condition worsens Warfarin Follow-Up Warfarin Follow UP: SEE PCP SOON IF NOT BETTER JEAN LOPEZ MD Jul 08, 2020 11:44
--- NOTE | 2020-07-08 12:50 | NUR ---
Pt IV and telemonitor discontinued by Snow DUCKWORTH. Pt escorted out via wheelchair with belongings to main entrance by [facility].
--- NOTE | 2020-07-08 15:12 | NUR ---
SW following for discharge planning. Spoke with RN and reviewed chart. Pt from home. Pt's COVID result was negative. Pt's diet advanced. Pt discharged home today, self-care. No further SW needs at this time.
== END 2020-07-08 12:50 | disposition home or self-care (01) | DRG 392 ==
LOC: ER 07:40 → 6 SOUTH 10:30
PROVIDERS: ADMIT Family Medicine; ATTEND Family Medicine
PROC: 0D9670Z Drainage of Stomach with Drainage Device, Via Natural or Artificial Opening (ICD-10-PCS; principal; 2020-07-06)
DX: K52.9 Noninfective gastroenteritis and colitis, unspecified (principal); K56.609 Unspecified intestinal obstruction, unspecified as to partial versus complete obstruction; F17.210 Nicotine dependence, cigarettes, uncomplicated; E87.6 Hypokalemia; Z20.828 Contact with and (suspected) exposure to other viral communicable diseases; F31.9 Bipolar disorder, unspecified; Z82.49 Family history of ischemic heart disease and other diseases of the circulatory system; Z82.5 Family history of asthma and other chronic lower respiratory diseases
CPT/HCPCS: 36415; 74018; 74177; 80048; 80053; 80307; 81001; 81025; 82553; 83690; 83735; 84484; 85025; 85610; 85730; 90471; 90686; 93005; 96361; 96374; 96375; G0480; J1650; J1885; J2405; J3411; J3480; J3490; J7030; Q9967; U0003; 99285-25; G0378